=== PATIENT | male | born 1945 | race Caucasian/White ===

== ENCOUNTER → 2017-04-28 | Outpatient (CLI) | payer MEDICARE, OTHER ==
[~2017-04-28] MED LIST: ASPIRIN E.C. 8181 MG PO; COENZYME Q-10200 MG PO; COZAAR 25MG25 MG/TAB PO; HCTZ 25MG TAB25 MG PO; HCTZ/TRIAMTEREN1 CAP PO; MELOXICAM15 MG PO; NORCO 325 MG-7.1 TAB PO; PRAVACHOL 20MG20 MG PO; ROXICODONE 55 MG/TAB PO; TYLENOL 500MG500 MG PO; UROXATRAL10 M1 PO; ZYLOPRIM 100MG100 MG PO
== END ==
LOC: SUN.DIA 03-23 15:07
DX: E11.9 Type 2 diabetes mellitus without complications (principal); E78.5 Hyperlipidemia, unspecified; I11.9 Hypertensive heart disease without heart failure; E66.9 Obesity, unspecified; Z68.31 Body mass index [BMI] 31.0-31.9, adult; Z71.3 Dietary counseling and surveillance; Z87.891 Personal history of nicotine dependence
CPT/HCPCS: G0108

== ENCOUNTER → 2017-10-27 | Outpatient (CLI) | payer MEDICARE, OTHER | LOC: SUN.DIA 08:45 | DX: E11.40 Type 2 diabetes mellitus with diabetic neuropathy, unspecified (principal); I11.9 Hypertensive heart disease without heart failure; E78.5 Hyperlipidemia, unspecified; E66.9 Obesity, unspecified; Z68.31 Body mass index [BMI] 31.0-31.9, adult; Z71.3 Dietary counseling and surveillance; Z87.891 Personal history of nicotine dependence | CPT/HCPCS: G0108 ==

== ENCOUNTER 2018-02-25 05:19 | Day surgery (SDC) | payer MEDICARE, OTHER ==
[~2018-02-25] VITALS: Ht 185.4 cm; Wt 107.4 kg
[~2018-02-25 05:19] MED LIST changes: -MELOXICAM15 MG PO; +MOBIC15 MG PO
[2018-02-25] MEDS ORDERED: TRICOR145 MG PO (05:59)
[2018-02-25 06:14] VITALS: BP 137/77; PULSE 58; TEMP 97.9
[2018-02-25 08:17] VITALS: BP 129/74; PULSE 52; TEMP 97.2
[2018-02-25 08:30] VITALS: BP 124/77; PULSE 43
[2018-02-25] MEDS ORDERED: PHENERGAN 25 TA25 MG PO (08:38)
[2018-02-25] MEDS ORDERED: NORCO 325 MG-51 TAB PO (08:38)
[2018-02-25] MEDS ORDERED: LEVAQUIN 5500 MG/TA1 PO (08:39)
[2018-02-25 08:45] VITALS: BP 135/82; PULSE 54
[2018-02-25 09:00] VITALS: BP 129/63; PULSE 56
[2018-02-25 10:00] VITALS: BP 133/78; PULSE 47
== END 2018-02-25 10:56 | disposition home or self-care (01) ==
LOC: SDCO 05:19
DX: M20.21 Hallux rigidus, right foot (principal); M20.41 Other hammer toe(s) (acquired), right foot; S93.149A Subluxation of metatarsophalangeal joint of unspecified toe(s), initial encounter; M13.871 Other specified arthritis, right ankle and foot; E11.9 Type 2 diabetes mellitus without complications; E78.5 Hyperlipidemia, unspecified; G43.909 Migraine, unspecified, not intractable, without status migrainosus; I10 Essential (primary) hypertension; K21.9 Gastro-esophageal reflux disease without esophagitis; Z88.8 Allergy status to other drugs, medicaments and biological substances; Z88.1 Allergy status to other antibiotic agents; Z79.82 Long term (current) use of aspirin; Z90.79 Acquired absence of other genital organ(s); Z96.652 Presence of left artificial knee joint; Z85.46 Personal history of malignant neoplasm of prostate; Z87.891 Personal history of nicotine dependence
CPT/HCPCS: C1713; J1885; J2250; J2405; J2704; J2795; J3010; J7120

== ENCOUNTER 2018-10-15 08:44 | Inpatient (IN) | payer MEDICARE, OTHER ==
[~2018-10-15] VITALS: Ht 185.4 cm; Wt 105.0 kg
[~2018-10-15 08:44] MED LIST changes: +LEVAQUIN 5500 MG/TA1 PO; +NORCO 325 MG-51 TAB PO; +PHENERGAN 25 TA25 MG PO; +TRICOR145 MG PO
[2018-11-15] VITALS (11 sets, daily range): BP systolic 117–152; BP diastolic 54–74; PULSE 38–53; TEMP 97–98.6
--- NOTE | 2018-11-15 11:55 | NUR ---
First visit from the nurse ortho. No needs right now.
--- NOTE | 2018-11-15 15:22 | NUR ---
PT INCONTINENET OF URINE. CHANGED GOWN AND BEDDING.
--- NOTE | 2018-11-15 18:37 | NUR ---
REPORT TO MAN MCDONNELL,
--- NOTE | 2018-11-15 19:51 | NUR ---
Patient ambulated from the bedside chair to the bed with assist x 2 with walker and gait belt, gait steady. Patient is c/o right knee throbbing, prn Fanshawe given. Family is at bedside.
--- NOTE | 2018-11-15 20:30 | NUR ---
Assessment completed. Patient is A&O x 4. VSS, on room air. Alternating [place]/Oxycodone for pain control at this time. Bulky clayton wrap dressing to right knee is CDI with a fresh ice pack applied to knee. Pedal pulses intact. LLE jt hose/BLE scds on. Tolerating diet with no c/o nausea. Voiding with no difficulities. IVF infusing with intermittent antibiotic per orders. Family is at bedside. Bed is in a low position with call light in reach.
--- NOTE | 2018-11-15 21:05 | NUR ---
Patient ambulated to the bathroom with assist x 1 with walker and gait belt, gait steady. Once back in bed and repositioned patient c/o his right hip bothering him and needing additional pain medication. Patient reported he usually has right hip at home at night and he repositions himself on his side but is unable to get comfortable on his side at this time, prn IV Morphine given.
--- NOTE | 2018-11-15 22:27 | NUR ---
Patient ambulated to the bathroom at this time with standby assist, gait continues to be steady. Denies any concerns or needs at this time.
[2018-11-16 02:57] VITALS: BP 128/51; PULSE 56; TEMP 98.2
--- NOTE | 2018-11-16 03:10 | NUR ---
Patient has been receiving alternating [place]/Coco for pain control. Reports his right knee doesn't hurt as bad as his right hip continues to hurt. Offered to assist patient with repositioning in bed again as earlier he had laid on his right hip for approximately 20 minutes before requesting to be repositioned to his back. Patient was agreeable to letting staff help his reposition in bed and prn IV Morphine given again.
--- NOTE | 2018-11-16 04:46 | NUR ---
Patient states he's been able to sleep for the last hour without being uncomfortable. Assisted patient in repositioning in bed again with pillows. Alternating [place]/Coco for pain control along with two doses of prn IV Morphine for breakthrough pain has been given through the night. Zach wrap to right knee is CDI with a fresh ice pack applied at this time. Patient has been up multiple times through the night to use the restroom, gait continues to be steady. Denies any concerns or needs. Bed is in a low position with call light in reach.
--- NOTE | 2018-11-16 07:00 | NUR ---
resting in bed, bedside shift report received from KECIA Kingsley
--- NOTE | 2018-11-16 07:40 | NUR ---
sitting up in bed ready to eat breakfast, c/o pain to right knee but more pain to right hip, medicated with hydrocodone 7.5mg 2 tabs
--- NOTE | 2018-11-16 08:15 | NUR ---
had breakfast and appears to be dozing, awakens easily, full assessment completed, see interventions for further info
[2018-11-16 09:32] VITALS: BP 137/62; PULSE 57; TEMP 98.6
--- NOTE | 2018-11-16 09:58 | NUR ---
ambulated out to [facility] with physical therapy for group exercises and now ambulating back to room, continues to c/o pain to right knee and hip, asked if he thought sitting in the chair was better than lying in bed but doesn't think it is better,
--- NOTE | 2018-11-16 10:15 | NUR ---
back to bed after therapy, medicated with roxicodone 10mg po, will try to rest
--- NOTE | 2018-11-16 10:45 | NUR ---
states pain in his right knee is tolerable but continues to have pain in right h ip, states he has been having this at home but can usually reposition to make it better, will assist with repositioning
[2018-11-16 11:34] VITALS: BP 146/56; PULSE 58; TEMP 98.5
--- NOTE | 2018-11-16 13:05 | NUR ---
spoke with Dr Aguilar and orders received
--- NOTE | 2018-11-16 13:15 | NUR ---
patient notified of orders for xrays and muscle relaxant, verbalizes understanding
--- NOTE | 2018-11-16 13:28 | NUR ---
out to [facility] per recliner for exercises
--- NOTE | 2018-11-16 13:56 | NUR ---
ambulating back to room with therapy with slow steady gait with c/so pain to right hip
--- NOTE | 2018-11-16 14:20 | NUR ---
back to room and resting in chair, medicated with hydrocodone 7.5mg 2 tabs and flexeril 10mg
--- NOTE | 2018-11-16 14:49 | NUR ---
radiology in and xrays completed, pateint states he cannot tell if meds have helped yet
--- NOTE | 2018-11-16 15:30 | NUR ---
remains in chair resting with cool cloth over face, states pain in right hip is still no better
--- NOTE | 2018-11-16 15:42 | NUR ---
SW met with patient to discuss discharge planning. Patient lives in [place] with his [place]. Patients PCP is Dr Aston Crawford and he obtains his medications from [facility]. Patient has the DME that he needs and plans on discharging home tomorrow with outpatient therapy and family support.
[2018-11-16 16:16] VITALS: BP 139/60; PULSE 55; TEMP 99.4
--- NOTE | 2018-11-16 16:27 | NUR ---
repositioned per patient's request sitting facing bed and elevate both legs up onto bed, states the stretching of the rright leg helps the pain
--- NOTE | 2018-11-16 16:53 | NUR ---
after assisted to sitting in chair with both legs up on bed states this has helped the pain in his right hip
--- NOTE | 2018-11-16 17:04 | NUR ---
Dr Aguilar in to see yaya
--- NOTE | 2018-11-16 18:43 | NUR ---
sitting up in chair eating supper, states pain is better in right hip, medicated with roxicodone 10mg po
--- NOTE | 2018-11-16 19:00 | NUR ---
bedside shift report given to KECIA Kingsley
--- NOTE | 2018-11-16 20:00 | NUR ---
Assessment completed. Patient is A&O x 4 sitting up in the chair watching television. VSS, on room air. Reports pain is much better from yesterday, alternating [place]/Coco for pain control. Aquacell dressing to right knee is CDI with an ice pack applied to knee. Pedal pulses intact. BLE jt hose/scds on. Voiding with no difficulities. Tolerating diet with no c/o nausea. INT to left hand. Up with standby assist with walker and gait belt, gait is steady. Ambulated approximately 100 feet this evening in the hallway. Denies any concerns or needs. Bed is in a low position with call light in reach.
[2018-11-16 20:41] VITALS: BP 118/61; PULSE 55; TEMP 97.9
[2018-11-16 23:21] VITALS: BP 142/66; PULSE 80; TEMP 99.4
[2018-11-17 03:27] VITALS: BP 132/65; PULSE 50; TEMP 98.2
--- NOTE | 2018-11-17 04:38 | NUR ---
Patient has been resting intermittently through the night. VSS. Reports minimal pain at this time, denies needing any pain medication. Right knee/hip pain has been controlled with alternating [place]/Coco through the night. Aquacell dressing to right knee remains CDI with a fresh ice pack applied at this time. Up with standby assist through the night with walker and gait belt, gait has remained steady. Denies any concerns or needs at this time. Bed is in a low position with call light in reach.
--- NOTE | 2018-11-17 06:55 | NUR ---
bedside shift report received from KECIA Kingsley, resting in bed has ordered breakfast
[2018-11-17] MEDS ORDERED: NORCO 325 MG-7.1 TAB PO (07:05)
[2018-11-17] MEDS ORDERED: XARELTO10 MG PO (07:05)
[2018-11-17] MEDS ORDERED: ROXICODONE 55 MG/TAB PO (07:06)
--- NOTE | 2018-11-17 07:30 | NUR ---
in chair and has had breakfast, medicated with hydrocodone 7.5mg 2 tabs in anticipation of therapy, INT discontinued
[2018-11-17 07:38] VITALS: BP 127/53; PULSE 67; TEMP 98.8
--- NOTE | 2018-11-17 09:00 | NUR ---
occupational therapy in and assisting with taking a shower
--- NOTE | 2018-11-17 09:34 | NUR ---
out to [facility] with physical therapy for group exercises
--- NOTE | 2018-11-17 10:45 | NUR ---
medicated with roxicodone 10mg po for c/os pain to right knee and hip
[2018-11-17 11:32] VITALS: BP 129/40; PULSE 57; TEMP 98
--- NOTE | 2018-11-17 13:35 | NUR ---
ambulated out to [facility] with pyysical therapy for group exercises
--- NOTE | 2018-11-17 14:00 | NUR ---
resting in chair after therapy awaiting discharge
--- NOTE | 2018-11-17 14:50 | NUR ---
resting in recliner, ready for discharge, discharge instructions given to patient and his and verbalizes understanding
--- NOTE | 2018-11-17 14:55 | NUR ---
discharged per WC
== END 2018-11-17 14:55 | disposition home or self-care (01) | DRG 470 ==
LOC: JCC 11-15 07:31
PROVIDERS: ADMIT Orthopaedic Surgery
PROC: 0SRC0J9 Replacement of Right Knee Joint with Synthetic Substitute, Cemented, Open Approach (ICD-10-PCS; principal; 2018-11-15 10:15)
DX: M17.11 Unilateral primary osteoarthritis, right knee (principal); I12.9 Hypertensive chronic kidney disease with stage 1 through stage 4 chronic kidney disease, or unspecified chronic kidney disease; E11.22 Type 2 diabetes mellitus with diabetic chronic kidney disease; N18.3 Chronic kidney disease, stage 3 (moderate); E11.40 Type 2 diabetes mellitus with diabetic neuropathy, unspecified; E78.5 Hyperlipidemia, unspecified; Z85.46 Personal history of malignant neoplasm of prostate; Z87.891 Personal history of nicotine dependence
CPT/HCPCS: A9284; C1713; C1776; J0690; J2250; J2270; J2704; J3010; J7030; J7042; J7120

== ENCOUNTER → 2019-03-01 | Outpatient (CLI) | payer MEDICARE, OTHER ==
[~2019-03-01] MED LIST changes: +XARELTO10 MG PO
== END ==
LOC: SUN.DIA 04-27 14:45
DX: E11.40 Type 2 diabetes mellitus with diabetic neuropathy, unspecified (principal); E78.5 Hyperlipidemia, unspecified; I10 Essential (primary) hypertension; E66.9 Obesity, unspecified
CPT/HCPCS: G0108

== ENCOUNTER → 2019-08-30 | Outpatient (CLI) | payer MEDICARE, OTHER | LOC: DIA.ED 08:41 | DX: E11.40 Type 2 diabetes mellitus with diabetic neuropathy, unspecified (principal); E78.5 Hyperlipidemia, unspecified; I10 Essential (primary) hypertension; E66.9 Obesity, unspecified | CPT/HCPCS: G0270 ==

== ENCOUNTER → 2020-08-27 | Outpatient (CLI) | payer MEDICARE, OTHER | LOC: DIA.ED 14:03 | DX: E11.40 Type 2 diabetes mellitus with diabetic neuropathy, unspecified (principal); E66.8 Other obesity; E78.5 Hyperlipidemia, unspecified; I10 Essential (primary) hypertension | CPT/HCPCS: G0108 ==